=== PATIENT | female | born 1990 | race Caucasian/White ===

== ENCOUNTER 2018-12-10 21:59 | Inpatient (IN) | payer SELFPAY ==
[2018-12-10] MEDS ORDERED: Sodium Chloride 0.9% 10 ML Syringe FLUSH PRN (22:35)
[2018-12-10] MEDS ORDERED: Sodium Chloride 0.9% 2.5 ML Syringe FLUSH PRN (22:35)
[2018-12-10] MEDS ORDERED: Sodium Chloride 0.9% 10 ML SDV IV PRN (22:35)
[2018-12-10] MEDS: Lactated Ringers 1,000 ML IV SCH (22:52)
--- NOTE | 2018-12-11 00:36 | US ---
INDICATION: BLEEDING, CHECK PLACENTA AND BPP OBSTETRICAL ULTRASOUND Technique: Multiple transabdominal sonographic images of the gravid uterus were performed. Comparison: No previous comparison studies are currently available. Findings: There is a single, live, intrauterine gestation in vertex position. cardiac activity is present with a heart rate of 147 BPM. The placenta is anterior in position and there is no evidence of previa or abruption. Amniotic fluid volume appears subjectively normal and the amniotic fluid index measures 16.8 cm there is some faintly echogenic debris within the amniotic fluid, most likely representing vernix. measurements show: BPD 8.5 centimeters, 34 weeks 2 days. HC 30.5 centimeters, 34 weeks 0 days. AC 28.8 centimeters, 32 weeks 6 days. FL 6.4 centimeters, 33 weeks 1 day. These measurements are concordant and yield a composite estimated menstrual age of 33 weeks 4 days which corresponds to an ROSINA of 01/24/2019. Estimated weight is 2124 grams. Evaluation of biophysical profile shows satisfactory breathing movements, gross body movements, tone, and amniotic fluid for a biophysical profile score of 8 out of 8. IMPRESSION: 1. Single, live, intrauterine gestation in vertex position with estimated menstrual age of 33 weeks 4 days and ROSINA of 01/24/2019. 2. Anterior placenta without evidence of previa or abruption. 3. Mildly echogenic amniotic fluid most likely representing vernix. 4. Biophysical profile score is 8 out of 8. DUKE MCDONALD MD [employer] Dictated by Sean Mcdonald MD @ 12/11/2018 12:33:35 AM Dictated by: Sean Mcdonald MD @ 12/11/2018 00:35:28 (Electronically Signed)
[2018-12-11] MEDS ORDERED: Terbutaline 1 MG/ML SDV SUBCUT ONE ×2 (01:06→03:38)
[2018-12-11] MEDS: Lactated Ringers 1,000 ML IV SCH (04:02)
[2018-12-11] MEDS ORDERED: Betamethasone Acetate/Betamethasone Sod Phosphate 30 MG/5 ML MDV IM ONE (07:51)
[2018-12-11] MEDS ORDERED: Misoprostol 200 MCG Tab PO PRN (08:43)
[2018-12-11] MEDS ORDERED: Sodium Chloride 0.9% 10 ML SDV IV PRN (08:43)
[2018-12-11] MEDS ORDERED: Sodium Chloride 0.9% 10 ML Syringe FLUSH PRN (08:43)
[2018-12-11] MEDS ORDERED: Tranexamic Acid 1,000 MG in Sodium Chloride 0.9% 100 ML IV PRN (08:43)
[2018-12-11] MEDS ORDERED: Carboprost Tromethamine 250 MCG/1 ML Amp IM PRN (08:43)
[2018-12-11] MEDS ORDERED: Methylergonovine 0.2 MG/1 ML Amp IM PRN (08:43)
[2018-12-11] MEDS ORDERED: Water For Irrigation,Sterile 1,000 ML Container IRR PRN (08:43)
[2018-12-11] MEDS ORDERED: Lidocaine 1% 50 ML MDV INJECT PRN (08:43)
[2018-12-11] MEDS ORDERED: Nalbuphine 10 MG/1 ML Vial IVPUSH PRN (08:43)
[2018-12-11] MEDS ORDERED: Sodium Chloride 0.9% 2.5 ML Syringe FLUSH PRN (08:43)
[2018-12-11] MEDS ORDERED: Butorphanol 1 MG/ML SDV IVPUSH PRN (08:43)
[2018-12-11] MEDS ORDERED: Oxytocin/0.9 % Sodium Chloride 30 UNIT/500 ML BAG IV SCH (08:45)
[2018-12-11] MEDS ORDERED: Lactated Ringers 1,000 ML IV SCH (08:45)
[2018-12-11] MEDS ORDERED: ceFAZolin 1 GM in Premix Bag 1 BAG IV ONE (08:45)
[2018-12-11] MEDS ORDERED: fentaNYL 100 MCG/2 ML SDV ONE (09:01)
[2018-12-11] MEDS ORDERED: Dextrose 10% in Water 500 ML ONE (09:32)
--- NOTE | 2018-12-11 10:19 | PCM.PREANE ---
Preanesthetic Assessment - Anesthesia/Transfusion/Family Hx Anesthesia History: No Prior Anesthesia Family History of Anesthesia Reaction: No Transfusion History: No Prior Transfusion(s) Intubation History: Unknown - Review of Systems General: No Symptoms Pulmonary: No Symptoms Cardiovascular: No Symptoms Gastrointestinal: Abdominal Pain Neurological: No Symptoms Other: Reports: None - Physical Assessment Height: 5 ft 4 in Weight: 87.543 kg ASA Class: 2 Mental Status: Alert & Oriented x3 Airway Class: Mallampati = 2 Dentition: Reports: Normal Dentition Thyro-Mental Finger Breadths: 3 Mouth Opening Finger Breadths: 3 ROM/Head Extension: Full Lungs: Clear to Auscultation, Normal Respiratory Effort Cardiovascular: Regular Rate, Regular Rhythm - Lab Values: Laboratory Last Values WBC 24.98 K/uL (4.0-11.0) H 12/11/18 08:08 RBC 3.36 M/uL (4.30-5.90) L 12/11/18 08:08 Hgb 10.1 g/dL (12.0-16.0) L 12/11/18 08:08 Hct 30.3 % (36.0-46.0) L 12/11/18 08:08 MCV 90.2 fL (80.0-98.0) 12/11/18 08:08 MCH 30.1 pg (27.0-32.0) 12/11/18 08:08 MCHC 33.3 g/dL (31.0-37.0) 12/11/18 08:08 RDW Std Deviation 46.3 fl (28.0-62.0) 12/11/18 08:08 RDW Coeff of Emelia 14 % (11.0-15.0) 12/11/18 08:08 Plt Count 266 K/uL (150-400) 12/11/18 08:08 MPV 10.50 fL (7.40-12.00) 12/11/18 08:08 Add Manual Diff YES 12/11/18 08:08 Neutrophils % (Manual) 86 % (48.0-80.0) H 12/11/18 08:08 Band Neutrophils % 6 % 12/11/18 08:08 Lymphocytes % (Manual) 3 % (16.0-40.0) L 12/11/18 08:08 Monocytes % (Manual) 4 % (0.0-15.0) 12/11/18 08:08 Eosinophils % (Manual) 1 % (0.0-7.0) 12/11/18 08:08 Nucleated RBC % 0.0 /100WBC 12/11/18 08:08 Absolute Seg Neuts 21.5 (1.4-5.7) H 12/11/18 08:08 Band Neutrophils # 1.5 12/11/18 08:08 Lymphocytes # (Manual) 0.7 (0.6-2.4) 12/11/18 08:08 Monocytes # (Manual) 1.0 (0.0-0.8) H 12/11/18 08:08 Eosinophils # (Manual) 0.2 (0.0-0.7) 12/11/18 08:08 Nucleated RBCs # 0 K/uL 12/11/18 08:08 Toxic Granulation 1+ SLIGHT 12/11/18 08:08 INR 0.88 12/11/18 08:08 Fibrinogen 533 mg/dL (215-411) H 12/11/18 08:08 Urine Color YELLOW 12/10/18 22:10 Urine Appearance SLT CLOUDY 12/10/18 22:10 Urine pH 7.0 (5.0-8.0) 12/10/18 22:10 Ur Specific [place] 1.015 (1.001-1.035) 12/10/18 22:10 Urine Protein NEGATIVE mg/dL (NEGATIVE) 12/10/18 22:10 Urine Glucose (UA) NEGATIVE mg/dL (NEGATIVE) 12/10/18 22:10 Urine Ketones NEGATIVE mg/dL (NEGATIVE) 12/10/18 22:10 Urine Occult Blood LARGE (NEGATIVE) H 12/10/18 22:10 Urine Nitrite NEGATIVE (NEGATIVE) 12/10/18 22:10 Urine Bilirubin NEGATIVE (NEGATIVE) 12/10/18 22:10 Urine Urobilinogen 0.2 EU/dL (<2.0) 12/10/18 22:10 Ur Leukocyte Esterase SMALL (NEGATIVE) H 12/10/18 22:10 Urine RBC 35-40 (0-2/HPF) 12/10/18 22:10 Urine WBC 0-3 (0-5/HPF) 12/10/18 22:10 Ur Epithelial Cells FEW (NONE-FEW) 12/10/18 22:10 Urine Bacteria FEW (NEGATIVE) 12/10/18 22:10 Urine Mucus LIGHT (NONE-MOD) 12/10/18 22:10 Blood Type A POSITIVE 12/11/18 08:08 Antibody Screen NEGATIVE 12/11/18 08:08 KB Screen SEE NOTE 12/11/18 08:08 Crossmatch See Detail 12/11/18 08:08 - Allergies Allergies/Adverse Reactions: Allergies Allergy/AdvReac Type Severity Reaction Status Date / Time Penicillins Allergy Intermediate Nausea Verified 12/10/18 22:18 ethinyl estradiol Allergy Sneezing Verified 12/10/18 22:18 [From ()] levonorgestrel Allergy Sneezing Verified 12/10/18 22:18 [From ()] - Blood Blood Available: No - Acknowledgements Anesthesia Type Planned: Epidural Pt an Appropriate Candidate for the Planned Anesthesia: Yes Alternatives and Risks of Anesthesia Discussed w Pt/Guardian: Yes Pt/Guardian Understands and Agrees with Anesthesia Plan: Yes PreAnesthesia Questionnaire - Past Health History Medical/Surgical History: Denies Medical/Surgical History HEENT History: Reports: Impaired Vision Other HEENT History: Pt wears glasses and/or uses contacts Other Genitourinary History: Pt states she has had a few UTI's in the past 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: 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: , 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 - Infectious Disease History Infectious Disease History: Reports: None - Past Surgical History Female Surgical History: Reports: None - HOME MEDS Home Medications: Home Meds Calcium Carbonate [Tums] 200 mg PO 12/10/18 [History] Loratadine [Claritin] 10 mg PO DAILY 12/10/18 [History] XSM129/Iron Fumarate/FA/DSS [ 19 Tablet] 1 each PO 12/10/18 [History] - CURRENT (IN HOUSE) MEDS Current Meds: Current Medications Butorphanol Tartrate (Stadol) 1 mg IVPUSH Q1H PRN PRN Reason: Pain Carboprost Tromethamine (Hemabate Ds) 250 mcg IM ASDIRECTED PRN PRN Reason: Post Hemorrhage Lactated Ringer's (Ringers, Lactated) 1,000 mls @ 150 mls/hr IV ASDIRECTED MARK Last Admin: 12/11/18 04:02 Dose: 150 mls/hr Tranexamic Acid 1,000 mg/ (Sodium Chloride) 110 mls @ 660 mls/hr IV ONETIME PRN PRN Reason: Bleeding Lactated Ringer's (Ringers, Lactated) 1,000 mls @ 150 mls/hr IV ASDIRECTED [facility] Oxytocin/Sodium Chloride (Oxytocin 30 Unit/500 Ml-Ns) 30 unit in 500 mls @ 999 mls/hr IV TITRATE MARK Lidocaine HCl (Xylocaine 1%) 50 ml INJECT ONETIME PRN PRN Reason: Laceration repair Methylergonovine Maleate (Methergine) 0.2 mg IM ASDIRECTED PRN PRN Reason: Post Hemorrhage Misoprostol (Cytotec) 200 mcg PO ONETIME PRN PRN Reason: Post Hemorrhage Nalbuphine HCl (Nubain) 10 mg IVPUSH Q1H PRN PRN Reason: Pain (severe 7-10) Sodium Chloride (Saline Flush) 10 ml FLUSH ASDIRECTED PRN PRN Reason: Keep Vein Open Sodium Chloride (Saline Flush) 2.5 ml FLUSH ASDIRECTED PRN PRN Reason: Keep Vein Open Sodium Chloride (Normal Saline) 10 ml IV ASDIRECTED PRN PRN Reason: IV Use Sodium Chloride (Saline Flush) 10 ml FLUSH ASDIRECTED PRN PRN Reason: Keep Vein Open Sodium Chloride (Saline Flush) 2.5 ml FLUSH ASDIRECTED PRN PRN Reason: Keep Vein Open Sodium Chloride (Normal Saline) 10 ml IV ASDIRECTED PRN PRN Reason: IV Use Sterile Water (Sterile Water For Irrigation) 1,000 ml IRR ASDIRECTED PRN PRN Reason: delivery Discontinued Medications Betamethasone Acet/Betameth SodPhos (Celestone Soluspan 6 Mg/Ml) 12 mg IM ONETIME ONE Stop: 12/11/18 07:52 Fentanyl (Sublimaze) Confirm Administered Dose 100 mcg .ROUTE .STK-MED ONE Stop: 12/11/18 09:02 Cefazolin Sodium/Dextrose 1 gm (/ Premix) 50 mls @ 100 mls/hr IV ONETIME ONE Stop: 12/11/18 09:14 Fentanyl/Bupivacaine HCl (Vxalullz-Bxlhf-Vu 2 Mcg/Ml-0.125%) Confirm Administered Dose 100 mls @ as directed .ROUTE .STK-MED ONE Stop: 12/11/18 09:03 Dextrose/Water (Dextrose 10% In Water) Confirm Administered Dose 500 mls @ as directed .ROUTE .STK-MED ONE Stop: 12/11/18 09:33 Terbutaline Sulfate (Brethine) 0.25 mg SUBCUT ONETIME ONE Stop: 12/11/18 01:07 Last Admin: 12/11/18 01:16 Dose: 0.25 mg Terbutaline Sulfate (Brethine) 0.25 mg SUBCUT ONETIME ONE Stop: 12/11/18 03:39 Last Admin: 12/11/18 04:04 Dose: 0.25 mg
[2018-12-11] MEDS ORDERED: Acetaminophen 500 MG Tab PO PRN ×2 (10:22)
[2018-12-11] MEDS ORDERED: Bisacodyl 10 MG Supp RECTAL PRN (10:22)
[2018-12-11] MEDS ORDERED: Lanolin 100% Cream 7 GM Tube TOP PRN (10:22)
[2018-12-11] MEDS ORDERED: Ibuprofen 800 MG Tab PO PRN (10:22)
[2018-12-11] MEDS ORDERED: oxyCODONE 5 MG Tab PO PRN (10:22)
[2018-12-11] MEDS ORDERED: Benzocaine/Menthol 20%-0.5% Spray 78 GM Cannister TOP PRN (10:22)
[2018-12-11] MEDS ORDERED: Ibuprofen 400 MG Tab PO PRN (10:22)
[2018-12-11] MEDS ORDERED: Docusate Sodium 100 MG Cap PO PRN (10:22)
[2018-12-11] MEDS ORDERED: Witch Hazel Medicated Pads 40/Jar TOP PRN (10:22)
--- NOTE | 2018-12-11 11:57 | PCM.DEL ---
L & D Note - General Info Date of Service: 12/11/18 Mother's Due Date: 01/27/19 - Delivery Note Labor: Spontaneous Delivery Method: Spontaneous Vaginal Delivery-Single Presentation: Left Occiput Anterior (MARGOTH) Nuchal Cord: None Anesthesia Type: Epidural, Local Anesthetic: Lidocaine (Xylocaine) 1% Plain Local Anesthetic Volume: 2cc Amniotic Fluid Description: Bloody Laceration: 2nd Degree Suture type: Other (monocryl) Suture size: 2-0 Placenta: Intact Cord: 3 Vessels Estimated Blood Loss: 1,000 [place]: Suctioned, Cathether, Warmed, Warmer Used Score 1 min: 6 Score 5 min: 8 Delivery Comments (Free Text/Narrative):: Placenta abruption with rapid progess in labor since 6.30am Patient noted to have repetitive deceleration AROM - Bloody Pushed for about 5 mins Live male delivered at 943am , 6/8 , weight 2350g - General Info Date of Service: 12/11/18 - Patient Data Weight - Most Recent: 87.543 kg Lab Results Last 24 Hours: Laboratory Results - last 24 hr 12/10/18 12/11/18 12/11/18 Range/Units 22:10 08:08 08:08 WBC 24.98 H (4.0-11.0) K/uL RBC 3.36 L (4.30-5.90) M/uL Hgb 10.1 L (12.0-16.0) g/dL Hct 30.3 L (36.0-46.0) % MCV 90.2 (80.0-98.0) fL MCH 30.1 (27.0-32.0) pg MCHC 33.3 (31.0-37.0) g/dL RDW Std Deviation 46.3 (28.0-62.0) fl RDW Coeff of Emelia 14 (11.0-15.0) % Plt Count 266 (150-400) K/uL MPV 10.50 (7.40-12.00) fL Add Manual Diff YES Neutrophils % (Manual) 86 H (48.0-80.0) % Band Neutrophils % 6 % Lymphocytes % (Manual) 3 L (16.0-40.0) % Monocytes % (Manual) 4 (0.0-15.0) % Eosinophils % (Manual) 1 (0.0-7.0) % Nucleated RBC % 0.0 /100WBC Absolute Seg Neuts 21.5 H (1.4-5.7) Band Neutrophils # 1.5 Lymphocytes # (Manual) 0.7 (0.6-2.4) Monocytes # (Manual) 1.0 H (0.0-0.8) Eosinophils # (Manual) 0.2 (0.0-0.7) Nucleated RBCs # 0 K/uL Toxic Granulation 1+ SLIGHT INR 0.88 Fibrinogen 533 H (215-411) mg/dL Urine Color YELLOW Urine Appearance SLT CLOUDY Urine pH 7.0 (5.0-8.0) Ur Specific [place] 1.015 (1.001-1.035) Urine Protein NEGATIVE (NEGATIVE) mg/dL Urine Glucose (UA) NEGATIVE (NEGATIVE) mg/dL Urine Ketones NEGATIVE (NEGATIVE) mg/dL Urine Occult Blood LARGE H (NEGATIVE) Urine Nitrite NEGATIVE (NEGATIVE) Urine Bilirubin NEGATIVE (NEGATIVE) Urine Urobilinogen 0.2 (<2.0) EU/dL Ur Leukocyte Esterase SMALL H (NEGATIVE) Urine RBC 35-40 (0-2/HPF) Urine WBC 0-3 (0-5/HPF) Ur Epithelial Cells FEW (NONE-FEW) Urine Bacteria FEW (NEGATIVE) Urine Mucus LIGHT (NONE-MOD) Blood Type Antibody Screen KB Screen KB Cells Counted KB Red Cells Counted KB % Cells Crossmatch 12/11/18 Range/Units 08:08 WBC (4.0-11.0) K/uL RBC (4.30-5.90) M/uL Hgb (12.0-16.0) g/dL Hct (36.0-46.0) % MCV (80.0-98.0) fL MCH (27.0-32.0) pg MCHC (31.0-37.0) g/dL RDW Std Deviation (28.0-62.0) fl RDW Coeff of Emelia (11.0-15.0) % Plt Count (150-400) K/uL MPV (7.40-12.00) fL Add Manual Diff Neutrophils % (Manual) (48.0-80.0) % Band Neutrophils % % Lymphocytes % (Manual) (16.0-40.0) % Monocytes % (Manual) (0.0-15.0) % Eosinophils % (Manual) (0.0-7.0) % Nucleated RBC % /100WBC Absolute Seg Neuts (1.4-5.7) Band Neutrophils # Lymphocytes # (Manual) (0.6-2.4) Monocytes # (Manual) (0.0-0.8) Eosinophils # (Manual) (0.0-0.7) Nucleated RBCs # K/uL Toxic Granulation INR Fibrinogen (215-411) mg/dL Urine Color Urine Appearance Urine pH (5.0-8.0) Ur Specific [place] (1.001-1.035) Urine Protein (NEGATIVE) mg/dL Urine Glucose (UA) (NEGATIVE) mg/dL Urine Ketones (NEGATIVE) mg/dL Urine Occult Blood (NEGATIVE) Urine Nitrite (NEGATIVE) Urine Bilirubin (NEGATIVE) Urine Urobilinogen (<2.0) EU/dL Ur Leukocyte Esterase (NEGATIVE) Urine RBC (0-2/HPF) Urine WBC (0-5/HPF) Ur Epithelial Cells (NONE-FEW) Urine Bacteria (NEGATIVE) Urine Mucus (NONE-MOD) Blood Type A POSITIVE Antibody Screen NEGATIVE KB Screen SEE NOTE KB Cells Counted 2 KB Red Cells Counted 2116 KB % Cells 0.09 Crossmatch See Detail Med Orders - Current: Current Medications Acetaminophen (Tylenol Extra Strength) 500 mg PO Q4H PRN PRN Reason: Pain Acetaminophen (Tylenol Extra Strength) 1,000 mg PO Q4H PRN PRN Reason: Pain Last Admin: 12/11/18 11:48 Dose: 1,000 mg Benzocaine/Menthol (Dermoplast Pain Relief 20%-0.5% Gordo) 78 gm TOP ASDIRECTED PRN PRN Reason: Perineal Comfort Measure Bisacodyl (Dulcolax) 10 mg RECTAL ONETIME PRN PRN Reason: Constipation Butorphanol Tartrate (Stadol) 1 mg IVPUSH Q1H PRN PRN Reason: Pain Carboprost Tromethamine (Hemabate Ds) 250 mcg IM ASDIRECTED PRN PRN Reason: Post Hemorrhage Docusate Sodium (Colace) 100 mg PO BID PRN PRN Reason: Constipation Emollient Ointment (Lansinoh Hpa) 0 gm TOP ASDIRECTED PRN PRN Reason: Sore Nipples Lactated Ringer's (Ringers, Lactated) 1,000 mls @ 150 mls/hr IV ASDIRECTED [facility] Last Admin: 12/11/18 04:02 Dose: 150 mls/hr Tranexamic Acid 1,000 mg/ (Sodium Chloride) 110 mls @ 660 mls/hr IV ONETIME PRN PRN Reason: Bleeding Lactated Ringer's (Ringers, Lactated) 1,000 mls @ 150 mls/hr IV ASDIRECTED [facility] Oxytocin/Sodium Chloride (Oxytocin 30 Unit/500 Ml-Ns) 30 unit in 500 mls @ 999 mls/hr IV TITRATE [facility] Last Infusion: 12/11/18 10:35 Dose: Infused Cefazolin Sodium/Dextrose 2 gm (/ Premix) 50 mls @ 100 mls/hr IV ONETIME ONE Stop: 12/11/18 16:29 Ibuprofen (Motrin) 400 mg PO Q4H PRN PRN Reason: Pain Ibuprofen (Motrin) 800 mg PO Q6H PRN PRN Reason: Pain Last Admin: 12/11/18 11:48 Dose: 800 mg Lidocaine HCl (Xylocaine 1%) 50 ml INJECT ONETIME PRN PRN Reason: Laceration repair Last Admin: 12/11/18 11:44 Dose: 50 ml Methylergonovine Maleate (Methergine) 0.2 mg IM ASDIRECTED PRN PRN Reason: Post Hemorrhage Misoprostol (Cytotec) 200 mcg PO ONETIME PRN PRN Reason: Post Hemorrhage Nalbuphine HCl (Nubain) 10 mg IVPUSH Q1H PRN PRN Reason: Pain (severe 7-10) Oxycodone HCl (Oxycodone) 5 mg PO Q2H PRN PRN Reason: Pain Sodium Chloride (Saline Flush) 10 ml FLUSH ASDIRECTED PRN PRN Reason: Keep Vein Open Sodium Chloride (Saline Flush) 2.5 ml FLUSH ASDIRECTED PRN PRN Reason: Keep Vein Open Sodium Chloride (Normal Saline) 10 ml IV ASDIRECTED PRN PRN Reason: IV Use Sodium Chloride (Saline Flush) 10 ml FLUSH ASDIRECTED PRN PRN Reason: Keep Vein Open Sodium Chloride (Saline Flush) 2.5 ml FLUSH ASDIRECTED PRN PRN Reason: Keep Vein Open Sodium Chloride (Normal Saline) 10 ml IV ASDIRECTED PRN PRN Reason: IV Use Sterile Water (Sterile Water For Irrigation) 1,000 ml IRR ASDIRECTED PRN PRN Reason: delivery Elizabeth [place]brook (Tucks) 1 pad TOP ASDIRECTED PRN PRN Reason: comfort care Discontinued Medications Betamethasone Acet/Betameth SodPhos (Celestone Soluspan 6 Mg/Ml) 12 mg IM ONETIME ONE Stop: 12/11/18 07:52 Fentanyl (Sublimaze) Confirm Administered Dose 100 mcg .ROUTE .STK-MED ONE Stop: 12/11/18 09:02 Cefazolin Sodium/Dextrose 1 gm (/ Premix) 50 mls @ 100 mls/hr IV ONETIME ONE Stop: 12/11/18 09:14 Fentanyl/Bupivacaine HCl (Qxhzeisf-Bwhjl-Yj 2 Mcg/Ml-0.125%) Confirm Administered Dose 100 mls @ as directed .ROUTE .STK-MED ONE Stop: 12/11/18 09:03 Dextrose/Water (Dextrose 10% In Water) Confirm Administered Dose 500 mls @ as directed .ROUTE .STK-MED ONE Stop: 12/11/18 09:33 Terbutaline Sulfate (Brethine) 0.25 mg SUBCUT ONETIME ONE Stop: 12/11/18 01:07 Last Admin: 12/11/18 01:16 Dose: 0.25 mg Terbutaline Sulfate (Brethine) 0.25 mg SUBCUT ONETIME ONE Stop: 12/11/18 03:39 Last Admin: 12/11/18 04:04 Dose: 0.25 mg - Problem List & Annotations (1) Vaginal delivery SNOMED Code(s): 094907420 Code(s): O80 - ENCOUNTER FOR FULL-TERM UNCOMPLICATED DELIVERY Status: Acute Current Visit: Yes - Problem List Review Problem List Initiated/Reviewed/Updated: Yes - My Orders Last 24 Hours: My Active Orders 12/11/18 08:08 RED BLOOD CELLS LP [BBK] Routine 12/11/18 09:00 GBS [CULTURE GROUP B STREP] [RM] Routine 12/11/18 10:22 Acetaminophen [Tylenol Extra Strength] 1,000 mg PO Q4H PRN Acetaminophen [Tylenol Extra Strength] 500 mg PO Q4H PRN Benzocaine/Menthol [Dermoplast Pain Relief 20%-0.5% [place]] 78 gm TOP ASDIRECTED PRN Bisacodyl [Dulcolax] 10 mg RECTAL ONETIME PRN Docusate Sodium [Colace] 100 mg PO BID PRN Ibuprofen [Motrin] 400 mg PO Q4H PRN Ibuprofen [Motrin] 800 mg PO Q6H PRN Lanolin [Lansinoh HPA] See Dose Instructions TOP ASDIRECTED PRN Witch Dariana [Tucks] 1 pad TOP ASDIRECTED PRN oxyCODONE 5 mg PO Q2H PRN 12/11/18 10:23 May Shower [RC] ASDIRECTED Up ad Jeimy [RC] ASDIRECTED Vital Signs [RC] PER UNIT ROUTINE Assess Lochia [WOMSER] Per Unit Routine Assess Uterine Involution [WOMSER] Per Unit Routine Peripheral IV Discontinue [OM.PC] Routine 12/11/18 16:00 ceFAZolin [Ancef] 2 gm Premix Bag 1 bag IV ONETIME 12/12/18 05:11 HEMOGLOBIN/HEMATOCRIT,HH [HEME] Timed
--- NOTE | 2018-12-11 13:28 | US ---
EXAM DATE: 12/11/18 PATIENT'S AGE: 28 Patient: CATA ROJAS Facility: [facility] Site . Site : [id number] Study: US-OB Pelvis [id number] 11:42:23 PM Ordering Physician: Lambert Castano Final Report: INDICATION: BLEEDING, CHECK PLACENTA AND BPP OBSTETRICAL ULTRASOUND Technique: Multiple transabdominal sonographic images of the gravid uterus were performed. Comparison: No previous comparison studies are currently available. Findings: There is a single, live, intrauterine gestation in vertex position. cardiac activity is present with a heart rate of 147 BPM. The placenta is anterior in position and there is no evidence of previa or abruption. Amniotic fluid volume appears subjectively normal and the amniotic fluid index measures 16.8 cm there is some faintly echogenic debris within the amniotic fluid, most likely representing vernix. measurements show: BPD 8.5 centimeters, 34 weeks 2 days. HC 30.5 centimeters, 34 weeks 0 days. AC 28.8 centimeters, 32 weeks 6 days. FL 6.4 centimeters, 33 weeks 1 day. These measurements are concordant and yield a composite estimated menstrual age of 33 weeks 4 days which corresponds to an ROSINA of 01/24/2019. Estimated weight is 2124 grams. Evaluation of biophysical profile shows satisfactory breathing movements, gross body movements, tone, and amniotic fluid for a biophysical profile score of 8 out of 8. IMPRESSION: 1. Single, live, intrauterine gestation in vertex position with estimated menstrual age of 33 weeks 4 days and ROSINA of 01/24/2019. 2. Anterior placenta without evidence of previa or abruption. 3. Mildly echogenic amniotic fluid most likely representing vernix. 4. Biophysical profile score is 8 out of 8. DUKE MCDONALD MD [employer] [employer] Dictated by Sean Mcdonald MD @ 12/11/2018 12:33:35 AM Dictated by: Sean Mcdonald MD @ 12/11/2018 00:35:28 Signed by: Sean Mcdonald MD @12/11/2018 12:35:28 AM (Electronic Signature) Report Signed by Proxy. [facility]
[2018-12-11] MEDS ORDERED: ceFAZolin 2 GM in Premix Bag 1 BAG IV ONE (16:00)
--- NOTE | 2018-12-11 18:46 | PCM48HPAN ---
Post Anesthesia Note - EVALUATION WITHIN 48HRS OF ANESTHETIC Vital Signs in Normal Range: Yes Patient Participated in Evaluation: Yes Respiratory Function Stable: Yes Airway Patent: Yes Cardiovascular Function Stable: Yes Hydration Status Stable: Yes Pain Control Satisfactory: Yes Nausea and Vomiting Control Satisfactory: Yes Mental Status Recovered: Yes
--- NOTE | 2018-12-12 02:08 | OR ---
SURGEON: BROOKE MAURICE DATE OF PROCEDURE:12/11/2018 PREOPERATIVE DIAGNOSES: A 28-year-old G4, P1-0-2-1 at 33 weeks 2 days with placental abruption, second- degree vaginal laceration. POSTOPERATIVE DIAGNOSES: A 28-year-old G4, P1-0-2-1 at 33 weeks 2 days with placental abruption, second- degree vaginal laceration. PROCEDURE: Normal spontaneous vaginal delivery and repair of second-degree vaginal laceration . EBL: 1000, about 100 at delivery, 900 prior. ANESTHESIA: Epidural. FINDINGS: Live male delivered at 9:43 a.m., score 6 and 9, weight 2350 g, bloody amniotic fluid. BACKGROUND AND PROCEDURE: She is a 28-year-old G4, P1-0-2-1 at 33 weeks and 2 days, who came in complaining of spotting. Patient stated she had sudden spotting and felt blood trickle down her leg. As a result, patient was kept for observation. She then began to bleed heavily around 6 o'clock when she was soaking through pads. At this time, a CBC was done and coagulation was done, which was noted to be normal. She was also GBS positive, received ampicillin. The patient was noted to be tj at this point. She was examined, she was about 5 cm dilated, and she was informed of the diagnosis. .I was informed that patient was having a deceleration, I immediately came to the Labor and Delivery room from the OR. She was examined, she was noted to be fully dilated. The membranes were ruptured. Bloody amniotic fluid was noted. She pushed for about 5 minutes. She delivered the head, subsequently by the anterior and posterior shoulder. The body of the was delivered. The cord was clamped immediately, was handed over to the maker up folding. Anesthesia was also in-house, beside the bed. Placenta was delivered and sent for pathology. Cord blood gases were obtained. The perineum was inspected and noted to have a second-degree laceration which was sutured in layers.Uterine Massage was done.The patient was left in Labor and Delivery room in stable condition. She will have repeat CBC done. All instrument and pad counts were correct x2. CAMMY / MARIA R /[id number] NANI
== END 2018-12-11 19:38 | disposition home or self-care (01) | DRG 805 ==
LOC: MW.OBCHECK 21:59 → MW.OB 22:00 → MW.OBCHECK 12-11 08:43 → MW.OB 12-11 08:43 → OBSVTOIN 12-11 09:43 → MW.OB 12-11 12:00
PROVIDERS: ADMIT Obstetrics & Gynecology; ATTEND Obstetrics & Gynecology
PROC: 10E0XZZ Delivery of Products of Conception, External Approach (ICD-10-PCS; principal; 2018-12-11)
PROC: 0KQM0ZZ Repair Perineum Muscle, Open Approach (ICD-10-PCS; 2018-12-11)
PROC: 10907ZC Drainage of Amniotic Fluid, Therapeutic from Products of Conception, Via Natural or Artificial Opening (ICD-10-PCS; 2018-12-11)
DX: O45.93 Premature separation of placenta, unspecified, third trimester (principal); O60.14X0 Preterm labor third trimester with preterm delivery third trimester, not applicable or unspecified; Z37.0 Single live birth; O70.1 Second degree perineal laceration during delivery; O76 Abnormality in fetal heart rate and rhythm complicating labor and delivery; O99.824 Streptococcus B carrier state complicating childbirth; Z3A.33 33 weeks gestation of pregnancy
CPT/HCPCS: 36415; 59025; 59409; 76815; 76815-26; 76819; 76819-26; 81001; 85025; 85384; 85610; 87081; A4217; A9270-GY; J0702; J2001; J2590; J3010; J3105; J7120

== ENCOUNTER 2022-03-27 21:44 | Emergency (ER) | payer BC ==
[2022-03-27 23:36] LABS: CARBON DIOXIDE,CO2 23.1 mmol/L (21.0-32.0); POTASSIUM,K 3.4 mmol/L (3.5-5.1)
== END 2022-03-28 00:26 | disposition home or self-care (01) ==
LOC: MW.ED 21:44
DX: O20.8 Other hemorrhage in early pregnancy (principal); Z88.0 Allergy status to penicillin; Z88.8 Allergy status to other drugs, medicaments and biological substances; Z3A.01 Less than 8 weeks gestation of pregnancy
CPT/HCPCS: 36415; 76801; 76801-26; 80053; 81001; 84702; 85025; 86900; 86901; 99284

== ENCOUNTER 2022-07-27 04:19 | Observation (INO) | payer BC ==
[2022-07-27] MEDS ORDERED: Morphine 4 MG/ML Syringe IM ONE (05:20)
[2022-07-27] MEDS ORDERED: Ondansetron 4 MG Tab PO ONE (05:21)
[2022-07-27] MEDS ORDERED: Morphine 4 MG/ML Syringe IVPUSH PRN (08:47)
[2022-07-27] MEDS ORDERED: Ondansetron 4 MG/2 ML SDV IVPUSH PRN (08:51)
[2022-07-27] MEDS ORDERED: Sodium Chloride 0.9% 10 ML Syringe FLUSH PRN (08:52)
[2022-07-27] MEDS ORDERED: Sodium Chloride 0.9% 2.5 ML Syringe FLUSH PRN (08:52)
[2022-07-27] MEDS ORDERED: Sodium Chloride 0.9% 20 ML SDV IV PRN (08:52)
[2022-07-27] MEDS: Lactated Ringers 1,000 ML IV SCH ×2 (09:16→12:55)
[2022-07-27 10:23] LABS: CARBON DIOXIDE,CO2 23.7 mmol/L (21.0-32.0)
[2022-07-27] MEDS: Morphine 4 MG/ML Syringe IVPUSH PRN ×3 (13:38→22:11)
[2022-07-27] MEDS: ceFAZolin 1 GM in Premix Bag 1 BAG IV SCH ×2 (13:40→21:15)
[2022-07-27] MEDS ORDERED: Lactated Ringers 1,000 ML IV SCH (16:30)
[2022-07-28] MEDS: Morphine 4 MG/ML Syringe IVPUSH PRN (09:34)
== END 2022-07-28 10:13 | disposition home or self-care (01) ==
LOC: MW.OBCHECK 04:19 → MW.OB 04:20 → MW.OBCHECK 12:03 → MW.OB 13:53
PROVIDERS: ADMIT Obstetrics & Gynecology; ATTEND Obstetrics & Gynecology
DX: O99.891 Other specified diseases and conditions complicating pregnancy (principal); R10.9 Unspecified abdominal pain; Z87.442 Personal history of urinary calculi; Z3A.23 23 weeks gestation of pregnancy
CPT/HCPCS: 36415; 80053; 81003; 85025; 96365; 96375; 96376; A9270; G0378; J0690; J2270; J2405; J7120